=== PATIENT | male | born 1980 | race Caucasian/White ===

== ENCOUNTER 2023-02-11 10:39 | Emergency (ER) | payer BC ==
[2023-02-11 11:05] VITALS: BP 111/66; PULSE 53; RESP 18; TEMP 99.3; BMI 24.4
[2023-02-11] MEDS ORDERED: IBUPROFEN 400 MG TABLET (FP) PO ONE ×2 (11:07→12:16)
== END 2023-02-11 12:48 | disposition home or self-care (01) ==
LOC: FER 10:39
DX: M25.572 Pain in left ankle and joints of left foot (principal); X50.1XXA Overexertion from prolonged static or awkward postures, initial encounter; Y93.73 Activity, racquet and hand sports
CPT/HCPCS: 73610-TC-LT-FY; 73630-TC-LT; 99283-25